=== PATIENT | female | born 1990 | race Caucasian/White ===

== ENCOUNTER 2017-11-22 00:01 | Emergency (ER) | payer OTHER ==
[~2017-11-22] VITALS: Ht 170.2 cm; Wt 65.0 kg
[~2017-11-22 00:01] MED LIST: IBUP-232 PO
[2017-11-22] MEDS ORDERED: SODIUM CHLORIDE 0.9% FLUSH 10 ML FLUSH IVF PRN (00:15)
[2017-11-22 00:20] VITALS: BP 119/75; PULSE 111; RESP 20; TEMP 98.1; O2SAT 98
[2017-11-22] MEDS ORDERED: MORPHINE SULFATE 4 MG/ML INJ IV PUSH ONE (00:30)
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
[2017-11-22] MEDS ORDERED: MORPHINE SULFATE 4 MG/ML INJ IM ONE (01:00)
[2017-11-22 01:23] LABS: BACTERIA, URINE FEW /hpf; BILIRUBIN, URINE NEG (NEG); BLOOD, URINE SMALL (NEG); GLUCOSE,URINE NEG (NEG); HYALINE CAST, URINE 7 /lpf (RARE); KETONE, URINE TRACE mg/dL (NEG); MUCUS URINE MANY /lpf (OCC); NITRITE,URINE NEG (NEG); SQUAMOUS EPITHELIAL CELL URINE 3 /hpf (0-5); URINE COLOR YELLOW (YELLW/STRAW); URINE LEUKOCYTE ESTERASE TRACE (NEG)
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
[2017-11-22] MEDS ORDERED: KETOROLAC TROMETHAMINE 60 MG/2 ML (IM) VIAL IM ONE (02:15)
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
[2017-11-22 02:54] VITALS: BP 117/89; PULSE 73; RESP 18; O2SAT 100; O2SAT 97
[2017-11-22] MEDS ORDERED: traMADol HCL 50 MG TAB PO ONE (03:00)
[2017-11-22] MEDS ORDERED: TRAM50 PO (03:08)
[2017-11-22] MEDS ORDERED: IBUP-232 PO (03:08)
--- NOTE | 2017-11-22 17:15 | EKG ---
Date Performed: 11/22/2017 Time Performed: 00:39:20 PTAGE: 27 years EKG: SINUS TACHYCARDIA ABNORMAL RHYTHM ECG PREVIOUS TRACING : 08/17/2009 21.03 DOCTOR: Matt Zabala Interpretating Date/Time 11/22/2017 17:14:06
== END 2017-11-22 03:36 | disposition home or self-care (01) ==
LOC: NEPE 00:01
DX: S32.029A Unspecified fracture of second lumbar vertebra, initial encounter for closed fracture (principal); S32.039A Unspecified fracture of third lumbar vertebra, initial encounter for closed fracture; S32.049A Unspecified fracture of fourth lumbar vertebra, initial encounter for closed fracture; S00.81XA Abrasion of other part of head, initial encounter; B96.20 Unspecified Escherichia coli [E. coli] as the cause of diseases classified elsewhere; J32.9 Chronic sinusitis, unspecified; R00.0 Tachycardia, unspecified; R94.31 Abnormal electrocardiogram [ECG] [EKG]; V47.5XXA Car driver injured in collision with fixed or stationary object in traffic accident, initial encounter
CPT/HCPCS: 70450; 71045; 72125; 73030; 74176; 80307; 81001; 84703; 87077; 87086; 87186; 93005; 96372; 99285; J1885; J2270